=== PATIENT | male | born 1960 | race American Indian/Alaskan Native ===

== ENCOUNTER 2017-04-27 16:08 | Emergency (ER) | payer OTHER ==
[2017-04-27 17:17] LABS: Bilirubin,Urine NEG (Negative); Blood,Urine NEG (Negative); Ketones,Urine NEG (Negative); Leukocyte Esterase,Urine NEG (Negative); Nitrite,Urine NEG (Negative); Protein,Urine <15 mg/dL mg/dL (Negative); Urobilinogen,Urine < 2.0 mg/dL (<2.0); WBC,Urine < 1.0 /HPF (0.0-6.0)
[2017-04-27 23:16] LABS: Anion Gap 16 mmol/L; BUN/Creatinine Ratio 20; Blood Urea Nitrogen 12 mg/dL (9-20); Calcium 8.6 mg/dL (8.4-10.2); Carbon Dioxide 27 mmol/L (22-30); Chloride 100.1 mmol/L (98-107); Glucose 111 mg/dL (75-100); Potassium 3.4 mmol/L (3.6-5.0); Sodium 140 mmol/L (137-145)
--- NOTE | 2017-04-27 23:18 | Emergency Department Report ---
HPI - General Chief Complaint: Urogenital-Male Time Seen by Provider: 04/27/17 22:26 - HPI HPI: This is a 57-year-old demented male presents to the emergency department with complaint of increased urinary frequency over the past 24 hours and a 1-2 day history of some pain to the bilateral flank, back and upper abdomen. He denies any nausea, vomiting, fever, diaphoresis. He says that he does not feel as if he is completely emptying his bladder when he urinates. He says that sometimes he will dribble and/or urinated on himself. When he urinates it feels like it is burning in the flank and abdomen. 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 No recent travel or sick contacts at home. His primary care physician is Dr. James Reddy. ED Past Medical Hx - Past Medical History Previous Medical History?: Yes Hx Congestive Heart Failure: No Hx Diabetes: No Hx Deep Vein Thrombosis: Yes Hx Seizures: Yes Hx Asthma: No Hx COPD: No - Surgical History Past Surgical History?: Yes Additional Surgical History: surgeries to bilateral extremities, knee surgery, surgery on neck for disc replacement - Social History Smoking Status: Current Every Day Smoker Substance Use Type: None - Medications Home Medications: Home Medications Medication Instructions Recorded Confirmed Last Taken Type Aspirin [Aspirin BABY CHEW TAB] 81 mg PO QDAY 09/19/14 06/26/16 09/18/14 History Phenytoin [Dilantin] 300 mg PO QHS 09/19/14 06/26/16 06/25/16 History Apixaban [Eliquis] 5 mg PO .TAPER #74 tab 06/28/16 Unknown Rx HYDROcodone/APAP 5-325 [Foley 2 each PO Q6H PRN #20 tablet 06/28/16 Unknown Rx 5-325 mg TAB] Nicotine [Habitrol] 14 mg TD DAILY #30 patch 06/28/16 Unknown Rx ED Review of Systems ROS: Stated complaint: BACK PAIN, FREQUENT URINATING Other details as noted in HPI Comment: All other systems reviewed and negative Constitutional: denies: chills, fever Eyes: denies: eye pain, eye discharge, vision change ENT: denies: ear pain, throat pain Respiratory: denies: cough, shortness of breath, wheezing Cardiovascular: denies: chest pain, palpitations Gastrointestinal: abdominal pain. denies: nausea, vomiting Genitourinary: urgency, dysuria, frequency Musculoskeletal: back pain. denies: arthralgia Skin: denies: rash, lesions Neurological: denies: headache, weakness, paresthesias Physical Exam - Physical Exam Vital Signs: Vital Signs 04/27/17 04/27/17 04/27/17 16:18 21:00 22:49 Temperature 97.8 F 98.0 F Pulse Rate 70 73 Respiratory 16 18 Rate Blood Pressure 140/82 139/78 128/72 O2 Sat by Pulse 99 98 Oximetry 04/27/17 22:53 Temperature Pulse Rate Respiratory 16 Rate Blood Pressure O2 Sat by Pulse 96 Oximetry Physical Exam: GENERAL: The patient is well-developed well-nourished. HENT: Normocephalic. Atraumatic. Patient has moist mucous membranes. EYES: Extraocular motions are intact. Pupils equal reactive to light bilaterally. NECK: Supple. Trachea is midline. CHEST/LUNGS: Clear to auscultation. There is no respiratory distress noted. HEART/CARDIOVASCULAR: Regular. There is no tachycardia. There is no gallop rub or murmur. ABDOMEN: Abdomen is soft. There is some mild upper quadrant abdominal tenderness palpation. No guarding or rebound tenderness. Patient has normal bowel sounds. There is no abdominal distention. SKIN: Skin is warm and dry. NEURO: The patient is awake, alert, and oriented. The patient is cooperative. The patient has no focal neurologic deficits. The patient has normal speech. MUSCULOSKELETAL: There is no tenderness or deformity. There is no limitation range of motion. There is no evidence of acute injury. ED Course Vital Signs 04/27/17 04/27/17 04/27/17 16:18 21:00 22:49 Temperature 97.8 F 98.0 F Pulse Rate 70 73 Respiratory 16 18 Rate Blood Pressure 140/82 139/78 128/72 O2 Sat by Pulse 99 98 Oximetry 04/27/17 22:53 Temperature Pulse Rate Respiratory 16 Rate Blood Pressure O2 Sat by Pulse 96 Oximetry ED Medical Decision Making - Lab Data Result diagrams: 04/27/17 22:45 04/27/17 22:45 - Radiology Data Radiology results: report reviewed PROCEDURE: CT ABDOMEN PELVIS W CON TECHNIQUE: Computerized axial tomography of the abdomen and pelvis was performed after the IV injection of iodinated nonionic contrast. HISTORY: Flank pain, abdominal pain COMPARISON: No prior studies are available for comparison. FINDINGS: Visualized lower thorax: No significant abnormality. Liver: Normal size and attenuation. Spleen: Normal size and attenuation. Gallbladder and biliary system: Normal. Pancreas: Normal. Adrenals: There is a low-density mass in the left adrenal gland which measures 3.1 x 3.6 centimeters. This is most likely an adenoma.. Kidneys: Normal. GI tract: There is focal mucosal thickening of the gastric antrum which could be contraction or gastritis. There is no discrete mass, obstruction or ulceration. The small bowel is within normal limits. The colon is unremarkable. The appendix is normal.. Lymph nodes and mesentery: Normal. Vasculature: Normal. Bladder: Normal. Reproductive organs: Normal. Peritoneum: There is no ascites, free air, abscess or adenopathy.. Musculoskeletal structures: No significant abnormality. Other: None. IMPRESSION: There are no kidney stones. There is no hydronephrosis. There is a low-density mass in the left adrenal gland which measures 3.1 x 3.6 centimeters. This is most likely an adenoma.. There is focal mucosal thickening of the gastric antrum which could be contraction or gastritis. There is no discrete mass, obstruction or ulceration. The small bowel is within normal limits. The colon is unremarkable. The appendix is normal.. There is no ascites, free air, abscess or adenopathy.. Transcribed By: CO Dictated By: JAYME GOSS MD Electronically Authenticated By: JAYME GOSS MD Signed Date/Time: 04/28/17 0013 - Medical Decision Making The patient presents with increased urinary frequency, some trouble urinating and some pain to the back, flank and abdomen. His labs have been mostly unremarkable. Vital signs stable throughout his ED course included being afebrile. CT scan did not show any source of his symptoms. There is a questionable left-sided adrenal adenoma and/or low-density mass. The patient has been resting comfortably throughout his ED course and has been reevaluated multiple times of multiple hours. He'll be discharged home to follow-up with his primary care physician and was given a referral for urology. We discussed the incidental findings of the CT scan. He will return to the ER with any worsening of symptoms or any acute distress. - Differential Diagnosis nephrolithiasis, hydronephrosis, pancreatitis, gastritis Critical Care Time: No Critical care attestation.: If time is entered above; I have spent that time in minutes in the direct care of this critically ill patient, excluding procedure time. ED Disposition Clinical Impression: Urinary frequency, Dysuria, Flank pain Abdominal pain Qualifiers: Abdominal location: upper abdomen, unspecified Qualified Code(s): R10.10 - Upper abdominal pain, unspecified Disposition: TO HOME OR SELFCARE Is pt being admited?: No Condition: Stable Instructions: Dysuria (ED), Abdominal Pain (ED), Flank Pain (ED) Additional Instructions: Please follow-up with your primary care physician in the next few days. I have given you a referral for a local urologist, Dr. Mederos, to follow up regarding your increased urinary frequency and trouble with urinating. Return to the emergency Department with any worsening of your symptoms or any acute distress. Referrals: PRIMARY MD DEANA [Primary Care Provider] - 3-5 Days MARTY MEDEROS MD [Staff Physician] - 3-5 Days Time of Disposition: 04:30
[2017-04-27 23:20] LABS: Alanine Aminotransferase 11 units/L (7-56); Albumin 3.9 g/dL (3.9-5); Albumin/Globulin Ratio 1.6 %; Alkaline Phosphatase 101 units/L (35-129); Bilirubin,Total < 0.20 mg/dL (0.1-1.2); Lipase 15 units/L (13-60); Total Protein 6.3 g/dL (6.3-8.2)
[2017-04-27 23:23] LABS: Bilirubin,Direct < 0.2 mg/dL (0-0.2)
[2017-04-27 23:24] LABS: Basophils % (Auto) 0.3 % (0.0-1.8); Eosinophils % (Auto) 0.2 % (0.0-4.3); Hematocrit 42.5 % (35.5-45.6); Hemoglobin 14.2 gm/dl (11.8-15.2); Mean Corpuscular HGB Conc 33 % (32-34); Mean Corpuscular Hemoglobin 31 pg (28-32); Mean Corpuscular Volume 93 fl (84-94); Platelet Count 197 K/mm3 (140-440); Red Blood Count 4.58 M/mm3 (3.65-5.03); Red Cell Distribution Width 14.4 % (13.2-15.2); White Blood Count 7.7 K/mm3 (4.5-11.0)
[2017-04-27] MEDS ORDERED: NACL ONE (23:48)
--- NOTE | 2017-04-28 04:16 | Cat Scan Report ---
FINAL REPORT PROCEDURE: CT ABDOMEN PELVIS W CON TECHNIQUE: Computerized axial tomography of the abdomen and pelvis was performed after the IV injection of iodinated nonionic contrast. HISTORY: Flank pain, abdominal pain COMPARISON: No prior studies are available for comparison. FINDINGS: Visualized lower thorax: No significant abnormality. Liver: Normal size and attenuation. Spleen: Normal size and attenuation. Gallbladder and biliary system: Normal. Pancreas: Normal. Adrenals: There is a low-density mass in the left adrenal gland which measures 3.1 x 3.6 centimeters. This is most likely an adenoma.. Kidneys: Normal. GI tract: There is focal mucosal thickening of the gastric antrum which could be contraction or gastritis. There is no discrete mass, obstruction or ulceration. The small bowel is within normal limits. The colon is unremarkable. The appendix is normal.. Lymph nodes and mesentery: Normal. Vasculature: Normal. Bladder: Normal. Reproductive organs: Normal. Peritoneum: There is no ascites, free air, abscess or adenopathy.. Musculoskeletal structures: No significant abnormality. Other: None. IMPRESSION: There are no kidney stones. There is no hydronephrosis. There is a low-density mass in the left adrenal gland which measures 3.1 x 3.6 centimeters. This is most likely an adenoma.. There is focal mucosal thickening of the gastric antrum which could be contraction or gastritis. There is no discrete mass, obstruction or ulceration. The small bowel is within normal limits. The colon is unremarkable. The appendix is normal.. There is no ascites, free air, abscess or adenopathy..
[2017-04-28 04:49] VITALS: BP 139/69
== END 2017-04-28 04:49 | disposition home or self-care (01) ==
LOC: ED 16:08
DX: R30.0 Dysuria (principal); R35.0 Frequency of micturition; R10.10 Upper abdominal pain, unspecified; F17.200 Nicotine dependence, unspecified, uncomplicated; Z79.82 Long term (current) use of aspirin
CPT/HCPCS: 36415; 74177; 80048; 80074; 81001; 82962; 83690; 85025; 99284; Q9967

== ENCOUNTER 2019-07-08 11:28 | Emergency (ER) | payer OTHER ==
--- NOTE | 2019-07-08 12:15 | Emergency Department Report ---
Chief Complaint: Upper Respiratory Infection Stated Complaint: CHEST PAIN/COUGH/VOMIT BLOOD - HPI History of Present Illness: 59 y/o male with cp, abd pain hemoptysis on eliquis for dvt mostly complaint not having si right now sober now gcs 15 passive si labs ekg ua xr chest main side reassess Vital Signs 07/08/19 11:43 Temperature 98.1 F Pulse Rate 66 Respiratory 20 Rate Blood Pressure 158/88 O2 Sat by Pulse 98 Oximetry - Exam Vital Signs: Vital Signs 07/08/19 11:43 Temperature 98.1 F Pulse Rate 66 Respiratory 20 Rate Blood Pressure 158/88 O2 Sat by Pulse 98 Oximetry MSE screening note: Focused history and physical exam performed. Due to findings the following was ordered: ED Disposition for MSE Condition: Stable
[2019-07-08 12:40] LABS: Basophils # (Auto) 0.1 K/mm3 (0.0-0.1); Basophils % (Auto) 0.9 % (0.0-1.8); Eosinophils % (Auto) 0.1 % (0.0-4.3); Hematocrit 42.4 % (35.5-45.6); Hemoglobin 14.1 gm/dl (11.8-15.2); Lymphocytes # (Auto) 1.5 K/mm3 (1.2-5.4); Lymphocytes % (Auto) 21.8 % (13.4-35.0); Mean Corpuscular HGB Conc 33 % (32-34); Mean Corpuscular Volume 91 fl (84-94); Monocytes # (Auto) 0.8 K/mm3 (0.0-0.8); Monocytes % (Auto) 12.1 % (0.0-7.3); Platelet Count 185 K/mm3 (140-440); Red Blood Count 4.67 M/mm3 (3.65-5.03); Red Cell Distribution Width 14.5 % (13.2-15.2)
[2019-07-08 12:50] LABS: INR 0.97 (0.87-1.13)
--- NOTE | 2019-07-08 12:51 | XRay Report ---
CHEST 2 VIEWS INDICATION / CLINICAL INFORMATION: Cough. Chest pain. COMPARISON: 2 views of the chest from 07/11/2010. FINDINGS: SUPPORT DEVICES: None. HEART / MEDIASTINUM: No significant abnormality. LUNGS / PLEURA: No significant pulmonary or pleural abnormality. No pneumothorax. ADDITIONAL FINDINGS: There are similar degenerative changes along the spine. No significant additiona l findings. IMPRESSION: 1. No acute abnormality of the chest. Signer Name: Kobi Willard MD Signed: 07/08/2019 12:47 PM Workstation Name: [id number]
[2019-07-08 13:05] LABS: Alanine Aminotransferase 15 units/L (7-56); BUN/Creatinine Ratio 20; Blood Urea Nitrogen 16 mg/dL (9-20); Calcium 9.2 mg/dL (8.4-10.2); Hemolysis Index 8
[2019-07-08] MEDS ORDERED: predniSONE 20 MG TAB PO ONE (14:11)
[2019-07-08] MEDS ORDERED: ALBUTEROL 2.5 MG/3 ML NEBU IH ONE (14:11)
--- NOTE | 2019-07-08 14:11 | Emergency Department Report ---
Minor Respiratory - HPI Chief Complaint: Upper Respiratory Infection Stated Complaint: CHEST PAIN/COUGH/VOMIT BLOOD Time Seen by Provider: 07/08/19 14:11 Duration: 3 Days Pain Location: Chest Severity: mild Minor Respiratory: Yes Rhinorrhea, Yes Sore Throat, Yes Able to Tolerate Fluids, Yes Cough, No Ear Pain, No Sick Contacts, No Hemoptysis, No Chest Pain, No Shortness of Breath, No Fever Other History: 59 YO AA MALE COMES TO ER WITH CHEST PAIN ASSOCIATED WITH A COUGH FOR 2 MONTHS. PT SEEN BY DR AGRAWAL IN TRIAGE. WORK UP NOTED. PT SMOKER WITH A/C BRONCHITIS. NO FEVER NO CHILLS. AMBULATORY. TAKING PO. IN NAD. COUNSELED ON SMOKING CESSATION. PCP DR GOETZ. HOME RX. ELOQUIS. [facility] ED Review of Systems ROS: Stated complaint: CHEST PAIN/COUGH/VOMIT BLOOD Other details as noted in HPI Comment: All other systems reviewed and negative ED Past Medical Hx - Past Medical History Hx Hypertension: No Hx CVA: No Hx Heart Attack/AMI: No Hx Congestive Heart Failure: No Hx Diabetes: No Hx Deep Vein Thrombosis: Yes Hx Pulmonary Embolism: No Hx GERD: No Hx Liver Disease: No Hx Renal Disease: No Hx of Cancer: No Hx Sickle Cell Disease: No Hx Arthritis: No Hx Headaches / Migraines: Yes Hx Seizures: Yes Hx Kidney Stones: No Hx Psychiatric Treatment: No Hx Asthma: No Hx COPD: No Hx Tuberculosis: No Hx Dementia: No Hx HIV: No - Surgical History Past Surgical History?: Yes Additional Surgical History: surgeries to bilateral extremities, knee surgery, surgery on neck for disc replacement - Family History Family history: no significant - Social History Smoking Status: Current Every Day Smoker Substance Use Type: None - Medications Home Medications: Home Medications Medication Instructions Recorded Confirmed Last Taken Type Phenytoin [Dilantin] 300 mg PO QHS 09/19/14 06/26/16 06/25/16 History Apixaban [Eliquis] 5 mg PO .TAPER #74 tab 06/28/16 Unknown Rx Albuterol INH(or & Nicu Only) 2 puff IH QID PRN #1 inhalation 07/08/19 Unknown Rx [ProAir HFA Inhaler] Azithromycin [Zithromax Z-MESFIN] 250 mg PO DAILY #6 tablet 07/08/19 Unknown Rx Fluticasone [Flonase] 1 spray NS QDAY #1 bottle 07/08/19 Unknown Rx predniSONE [Deltasone] 20 mg PO DAILY #5 tablet 07/08/19 Unknown Rx Minor Respiratory Exam - Exam General: Vital signs noted. No distress. Alert and acting appropriately. HEENT: Yes Pharyngeal Erythema, Yes Moist Mucous Membranes, Yes Frontal Tenderness, Yes Maxillary Tenderness, No Pharyngeal Exudates, No Rhinorrhea, No Conjuctival Injection Ear: Neither TM Bulge, Neither TM Erythema, Neither EAC Pain, Neither EAC Discharge Neck: Yes Supple, No Adenopathy Lungs: Yes Good Air Exchange, Yes Wheezes, Yes Ronchi, No Stridor, No Cough, No Labored Respirations, No Retractions, No Use of Accessory Muscles, No Other Abnormal Lung Sounds Heart: Yes Regular, No Murmur Abdomen: Yes Normal Bowel Sounds, No Tenderness, No Peritoneal Signs Skin: No Rash, No Edema Neurologic: Alert and oriented, no deficits. Musculoskeletal: Unremarkable. ED Course Vital Signs 07/08/19 11:43 Temperature 98.1 F Pulse Rate 66 Respiratory 20 Rate Blood Pressure 158/88 O2 Sat by Pulse 98 Oximetry - Reevaluation(s) Reevaluation #1: 07/08/19 14:19 home rx eloquis vit b vit d keppra ED Medical Decision Making - Lab Data Result diagrams: 07/08/19 12:23 07/08/19 12:23 - EKG Data -: EKG Interpreted by Me EKG shows normal: sinus rhythm Rate: normal - EKG Data When compared to previous EKG there are: no significant change Interpretation: no acute changes - Radiology Data Radiology results: report reviewed, image reviewed interpreted by me: elliot - Medical Decision Making Labs 07/08/19 07/08/19 07/08/19 12:23 12:23 12:23 WBC 6.7 RBC 4.67 Hgb 14.1 Hct 42.4 MCV 91 MCH 30 MCHC 33 RDW 14.5 Plt Count 185 Lymph % (Auto) 21.8 Jack % (Auto) 12.1 H Eos % (Auto) 0.1 Baso % (Auto) 0.9 Lymph # 1.5 Jack # 0.8 Eos # 0.0 Baso # 0.1 Seg Neutrophils % 65.1 Seg Neutrophils # 4.4 PT 13.0 INR 0.97 Sodium 141 Potassium 4.6 Chloride 105.4 Carbon Dioxide 22 Anion Gap 18 BUN 16 Creatinine 0.8 Estimated GFR > 60 BUN/Creatinine Ratio 20 Glucose 104 H Calcium 9.2 Magnesium 2.00 Total Bilirubin 0.20 AST 17 ALT 15 Alkaline Phosphatase 85 Total Creatine Kinase 171 H Troponin T < 0.010 Total Protein 6.7 Albumin 4.0 Albumin/Globulin Ratio 1.5 Salicylates Acetaminophen 07/08/19 07/08/19 12:23 12:23 WBC RBC Hgb Hct MCV MCH MCHC RDW Plt Count Lymph % (Auto) Jack % (Auto) Eos % (Auto) Baso % (Auto) Lymph # Jack # Eos # Baso # Seg Neutrophils % Seg Neutrophils # PT INR Sodium Potassium Chloride Carbon Dioxide Anion Gap BUN Creatinine Estimated GFR BUN/Creatinine Ratio Glucose Calcium Magnesium Total Bilirubin AST ALT Alkaline Phosphatase Total Creatine Kinase Troponin T Total Protein Albumin Albumin/Globulin Ratio Salicylates < 0.3 L Acetaminophen < 5.0 L Vital Signs 07/08/19 11:43 Temperature 98.1 F Pulse Rate 66 Respiratory 20 Rate Blood Pressure 158/88 O2 Sat by Pulse 98 Oximetry MEDICATED WITH DUONEB AND PREDNISONE IN ER VSS AMBULATORY NON ILL NON TOXIC DC HOME WITH DC PLAN OF CARE AND PCP FOLLOW UP - Differential Diagnosis ro pna/chf/uri/copd ae Critical care attestation.: If time is entered above; I have spent that time in minutes in the direct care of this critically ill patient, excluding procedure time. ED Disposition Clinical Impression: Bronchitis, URTI (acute upper respiratory infection) Disposition: DC-01 TO HOME OR SELFCARE Is pt being admited?: No Does the pt Need Aspirin: No Condition: Stable Instructions: Acute Bronchitis (ED) Additional Instructions: stay well hydrated stop smoking meds as ordered today continue home meds follow up with pcp additional referral given below Prescriptions: predniSONE [Deltasone] 20 mg PO DAILY #5 tablet Fluticasone [Flonase] 1 spray NS QDAY #1 bottle Albuterol INH(or & Nicu Only) [ProAir HFA Inhaler] 2 puff IH QID PRN #1 inhalation PRN Reason: Shortness Of Breath Azithromycin [Zithromax Z-MESFIN] 250 mg PO DAILY #6 tablet Referrals: JAYCEE VACA MD [Staff Physician] - 3-5 Days Forms: Work/School Release Form(ED) Time of Disposition: 14:17
[2019-07-08 15:06] VITALS: BP 128/76
== END 2019-07-08 15:25 | disposition home or self-care (01) ==
LOC: ED 11:28
DX: J40 Bronchitis, not specified as acute or chronic (principal); J06.9 Acute upper respiratory infection, unspecified; G43.909 Migraine, unspecified, not intractable, without status migrainosus; F17.200 Nicotine dependence, unspecified, uncomplicated; Z98.890 Other specified postprocedural states
CPT/HCPCS: 36415; 71046; 80053; 82550; 83735; 84484; 85025; 85610; 93005; 93010; 94640; 99284; J7512; 80320; G0480

== ENCOUNTER 2020-03-13 20:37 | Emergency (ER) | payer OTHER ==
[2020-03-13 20:47] VITALS: BP 137/76
--- NOTE | 2020-03-13 21:32 | XRay Report ---
RIGHT TIBIA-FIBULA 2 VIEW(S) INDICATION / CLINICAL INFORMATION: MAIN COMPARISON: None available. FINDINGS: BONES / JOINT(S): No acute fracture or subluxation. Intramedullary jennifer and screw fixation of prior ti bial trauma without evidence of hardware loosening or failure. Multiple fractures are noted throughou t the fibular shaft. Moderate arthrosis of the knee. SOFT TISSUES: Mild generalized superficial soft tissue swelling over the anterior tibia. ADDITIONAL FINDINGS: None. Signer Name: Sergey Matthew MD Signed: 03/13/2020 9:28 PM Workstation Name: [id number]
--- NOTE | 2020-03-13 22:53 | Emergency Department Report ---
ED Lower Extremity HPI - General Chief Complaint: Extremity Injury, Lower Stated Complaint: RIGHT LOWER LEG PAIN Time Seen by Provider: 03/13/20 22:35 Source: patient, EMS Mode of arrival: Wheelchair Limitations: No Limitations - History of Present Illness Initial Comments: 59-year-old male presents to ED with pain to right lower leg. Patient states he was at work when a forklift hit him in the lateral aspect of his lower leg. Patient reports difficulty with ambulation secondary to pain. MD Complaint: leg injury -: This evening Injury: Leg: Right Type of Injury: blunt Place: work Severity: moderate Improves With: immobilization Worsens With: weight bearing, palpation Context: direct blow - Related Data Home Medications Medication Instructions Recorded Confirmed Last Taken Phenytoin [Dilantin] 300 mg PO QHS 09/19/14 06/26/16 06/25/16 Previous Rx's Medication Instructions Recorded Last Taken Type Apixaban [Eliquis] 5 mg PO .TAPER #74 tab 06/28/16 Unknown Rx Albuterol Mdi (or & Nicu Only) 2 puff IH QID PRN #1 inhalation 07/08/19 Unknown Rx [ProAir HFA Inhaler] Azithromycin [Zithromax Z-MESFIN] 250 mg PO DAILY #6 tablet 07/08/19 Unknown Rx Fluticasone [Flonase] 1 spray NS QDAY #1 bottle 07/08/19 Unknown Rx predniSONE [Deltasone] 20 mg PO DAILY #5 tablet 07/08/19 Unknown Rx Naproxen [Naprosyn] 500 mg PO BID #20 tablet 03/13/20 Unknown Rx Allergies Allergy/AdvReac Type Severity Reaction Status Date / Time No Known Allergies Allergy Verified 09/19/14 18:05 ED Review of Systems ROS: Stated complaint: RIGHT LOWER LEG PAIN Other details as noted in HPI Comment: All other systems reviewed and negative Musculoskeletal: as per HPI ED Past Medical Hx - Past Medical History Hx Hypertension: No Hx CVA: No Hx Heart Attack/AMI: No Hx Congestive Heart Failure: No Hx Diabetes: No Hx Deep Vein Thrombosis: Yes Hx Pulmonary Embolism: No Hx GERD: No Hx Liver Disease: No Hx Renal Disease: No Hx Sickle Cell Disease: No Hx Arthritis: No Hx Headaches / Migraines: Yes Hx Seizures: Yes Hx Kidney Stones: No Hx Psychiatric Treatment: No Hx Asthma: No Hx COPD: No Hx Tuberculosis: No Hx Dementia: No Hx HIV: No - Surgical History Additional Surgical History: surgeries to bilateral extremities, knee surgery, surgery on neck for disc replacement - Social History Smoking Status: Current Every Day Smoker Substance Use Type: None - Medications Home Medications: Home Medications Medication Instructions Recorded Confirmed Last Taken Type Phenytoin [Dilantin] 300 mg PO QHS 09/19/14 06/26/16 06/25/16 History Apixaban [Eliquis] 5 mg PO .TAPER #74 tab 06/28/16 Unknown Rx Albuterol Mdi (or & Nicu Only) 2 puff IH QID PRN #1 inhalation 07/08/19 Unknown Rx [ProAir HFA Inhaler] Azithromycin [Zithromax Z-MESFIN] 250 mg PO DAILY #6 tablet 07/08/19 Unknown Rx Fluticasone [Flonase] 1 spray NS QDAY #1 bottle 07/08/19 Unknown Rx predniSONE [Deltasone] 20 mg PO DAILY #5 tablet 07/08/19 Unknown Rx Naproxen [Naprosyn] 500 mg PO BID #20 tablet 03/13/20 Unknown Rx ED Physical Exam - General Limitations: No Limitations General appearance: alert, in no apparent distress - Head Head exam: Present: atraumatic, normocephalic - Eye Eye exam: Present: normal appearance - ENT ENT exam: Present: mucous membranes moist - Neck Neck exam: Present: normal inspection - Respiratory Respiratory exam: Present: normal lung sounds bilaterally. Absent: respiratory distress - Cardiovascular Cardiovascular Exam: Present: normal rhythm, bradycardia - GI/Abdominal GI/Abdominal exam: Absent: distended - Extremities Exam Extremities exam: Present: other (Slight tenderness to lateral aspect right lower leg; no deformity noted; no bruising or swelling present) - Neurological Exam Neurological exam: Present: alert, oriented X3. Absent: motor sensory deficit - Psychiatric Psychiatric exam: Present: normal affect, normal mood - Skin Skin exam: Present: warm, dry, intact, normal color ED Course Vital Signs 03/13/20 20:46 Temperature 98.1 F Pulse Rate 58 L Respiratory 19 Rate Blood Pressure 137/76 O2 Sat by Pulse 91 Oximetry ED Lower Extremity MDM - Radiology Data Radiology results: report reviewed, image reviewed - Medical Decision Making 59-year-old male with right lower leg contusion. X-rays are unremarkable. Existing hardware appears to be stable. Will discharge at this time with prescription for anti-inflammatories. Return precautions given. - Differential Diagnosis Fracture, contusion Critical care attestation.: If time is entered above; I have spent that time in minutes in the direct care of this critically ill patient, excluding procedure time. ED Disposition Clinical Impression: Contusion of right lower leg Disposition: DC- TO HOME OR SELFCARE Is pt being admited?: No Condition: Stable Instructions: Contusion in Adults (ED) Prescriptions: Naproxen [Naprosyn] 500 mg PO BID #20 tablet Referrals: PRIMARY CARE, [Primary Care Provider] - 3-5 Days Forms: Work/School Release Form Time of Disposition: 22:53
== END 2020-03-13 23:15 | disposition home or self-care (01) ==
LOC: ED 20:37
DX: S80.11XA Contusion of right lower leg, initial encounter (principal); G43.909 Migraine, unspecified, not intractable, without status migrainosus; F17.200 Nicotine dependence, unspecified, uncomplicated; Z98.890 Other specified postprocedural states; Z86.718 Personal history of other venous thrombosis and embolism; Z79.01 Long term (current) use of anticoagulants; Z79.899 Other long term (current) drug therapy; X58.XXXA Exposure to other specified factors, initial encounter; Y93.89 Activity, other specified; Y92.89 Other specified places as the place of occurrence of the external cause; Y99.8 Other external cause status

== ENCOUNTER 2020-04-29 19:45 | Emergency (ER) | payer OTHER ==
[2020-04-29] MEDS ORDERED: levETIRAcetam 1000 MG/NS 0.75% 1,000 MG/100 ML BAG IV ONE (20:27)
--- NOTE | 2020-04-29 20:49 | Emergency Department Report ---
ED Seizure HPI - General Chief Complaint: Seizure Stated Complaint: SEIZURE Time Seen by Provider: 04/29/20 20:21 Source: patient, EMS Mode of arrival: Stretcher Limitations: No Limitations - History of Present Illness Initial Comments: Patient is a 60-year-old F [place] male has a past medical history of seizures who states he has been compliant with his Keppra was increased seizures over the last 2 weeks. Patient is stated he had a seizure prior to arrival. Patient is denying any head trauma fevers chills nausea vomiting diarrhea at this time. - Related Data Home Medications Medication Instructions Recorded Confirmed Last Taken Phenytoin [Dilantin] 300 mg PO QHS 09/19/14 06/26/16 06/25/16 Previous Rx's Medication Instructions Recorded Last Taken Type Apixaban [Eliquis] 5 mg PO .TAPER #74 tab 06/28/16 Unknown Rx Albuterol Mdi (or & Nicu Only) 2 puff IH QID PRN #1 inhalation 07/08/19 Unknown Rx [ProAir HFA Inhaler] Azithromycin [Zithromax Z-MESFIN] 250 mg PO DAILY #6 tablet 07/08/19 Unknown Rx Fluticasone [Flonase] 1 spray NS QDAY #1 bottle 07/08/19 Unknown Rx predniSONE [Deltasone] 20 mg PO DAILY #5 tablet 07/08/19 Unknown Rx Naproxen [Naprosyn] 500 mg PO BID #20 tablet 03/13/20 Unknown Rx Allergies Allergy/AdvReac Type Severity Reaction Status Date / Time No Known Allergies Allergy Verified 09/19/14 18:05 ED Review of Systems ROS: Stated complaint: SEIZURE Other details as noted in HPI Comment: All other systems reviewed and negative ED Past Medical Hx - Past Medical History Hx Hypertension: No Hx CVA: No Hx Heart Attack/AMI: No Hx Congestive Heart Failure: No Hx Diabetes: No Hx Deep Vein Thrombosis: Yes Hx Pulmonary Embolism: No Hx GERD: No Hx Liver Disease: No Hx Renal Disease: No Hx Sickle Cell Disease: No Hx Arthritis: No Hx Headaches / Migraines: Yes Hx Seizures: Yes Hx Kidney Stones: No Hx Psychiatric Treatment: No Hx Asthma: No Hx COPD: No Hx Tuberculosis: No Hx Dementia: No Hx HIV: No - Surgical History Additional Surgical History: surgeries to bilateral extremities, knee surgery, surgery on neck for disc replacement - Social History Smoking Status: Current Every Day Smoker Substance Use Type: None - Medications Home Medications: Home Medications Medication Instructions Recorded Confirmed Last Taken Type Phenytoin [Dilantin] 300 mg PO QHS 09/19/14 06/26/16 06/25/16 History Apixaban [Eliquis] 5 mg PO .TAPER #74 tab 06/28/16 Unknown Rx Albuterol Mdi (or & Nicu Only) 2 puff IH QID PRN #1 inhalation 07/08/19 Unknown Rx [ProAir HFA Inhaler] Azithromycin [Zithromax Z-MESFIN] 250 mg PO DAILY #6 tablet 07/08/19 Unknown Rx Fluticasone [Flonase] 1 spray NS QDAY #1 bottle 07/08/19 Unknown Rx predniSONE [Deltasone] 20 mg PO DAILY #5 tablet 07/08/19 Unknown Rx Naproxen [Naprosyn] 500 mg PO BID #20 tablet 03/13/20 Unknown Rx ED Physical Exam - General Limitations: No Limitations General appearance: alert, in no apparent distress - Head Head exam: Present: atraumatic, normocephalic - Eye Eye exam: Present: normal appearance, PERRL, EOMI - ENT ENT exam: Present: normal orophraynx, mucous membranes moist - Neck Neck exam: Present: normal inspection - Respiratory Respiratory exam: Present: normal lung sounds bilaterally. Absent: respiratory distress, wheezes, rales, rhonchi - Cardiovascular Cardiovascular Exam: Present: regular rate, normal rhythm, normal heart sounds. Absent: systolic murmur, diastolic murmur, rubs, gallop - GI/Abdominal GI/Abdominal exam: Present: soft, normal bowel sounds. Absent: distended, tenderness, guarding, rebound - Rectal Rectal exam: Present: deferred - Extremities Exam Extremities exam: Present: normal inspection - Back Exam Back exam: Present: normal inspection - Neurological Exam Neurological exam: Present: alert, oriented X3 - Psychiatric Psychiatric exam: Present: normal affect, normal mood - Skin Skin exam: Present: warm, dry, intact, normal color. Absent: rash ED Course Vital Signs 04/29/20 04/29/20 19:57 22:06 Temperature 98.1 F 98.2 F Pulse Rate 65 59 L Respiratory 23 15 Rate Blood Pressure 154/74 152/75 [Left] O2 Sat by Pulse 99 97 Oximetry ED Medical Decision Making - Lab Data Result diagrams: 04/29/20 20:34 04/29/20 20:34 - Medical Decision Making Patient was loaded with Keppra. Laboratory studies were within normal limits and the patient be discharged home. Critical care attestation.: If time is entered above; I have spent that time in minutes in the direct care of this critically ill patient, excluding procedure time. ED Disposition Clinical Impression: Breakthrough seizure Disposition: DC-01 TO HOME OR SELFCARE Is pt being admited?: No Does the pt Need Aspirin: No Condition: Stable Instructions: Seizure, Adult, [id number] Referrals: PRIMARY CARE, [Primary Care Provider] - 3-5 Days Time of Disposition: 22:09
[2020-04-29 20:55] LABS: Basophils % (Auto) 0.7 % (0.0-1.8); Eosinophils # (Auto) 0.1 K/mm3 (0.0-0.4); Eosinophils % (Auto) 1.3 % (0.0-4.3); Hematocrit 41.9 % (35.5-45.6); Lymphocytes # (Auto) 1.1 K/mm3 (1.2-5.4); Lymphocytes % (Auto) 17.2 % (13.4-35.0); Mean Corpuscular HGB Conc 33 % (32-34); Mean Corpuscular Volume 91 fl (84-94); Monocytes # (Auto) 0.8 K/mm3 (0.0-0.8); Monocytes % (Auto) 11.8 % (0.0-7.3); Platelet Count 155 K/mm3 (140-440); Red Blood Count 4.63 M/mm3 (3.65-5.03); Red Cell Distribution Width 14.5 % (13.2-15.2)
[2020-04-29 21:12] LABS: BUN/Creatinine Ratio 16; Blood Urea Nitrogen 16 mg/dL (9-20); Calcium 8.7 mg/dL (8.4-10.2); Hemolysis Index 15
[2020-04-29] MEDS ORDERED: ACETAMINOPHEN 325 MG TAB PO ONE (22:07)
[2020-04-29 23:26] VITALS: BP 138/73
== END 2020-04-29 23:14 | disposition home or self-care (01) ==
LOC: ED 19:45
DX: R56.9 Unspecified convulsions (principal); G43.909 Migraine, unspecified, not intractable, without status migrainosus; F17.200 Nicotine dependence, unspecified, uncomplicated; Z86.718 Personal history of other venous thrombosis and embolism; Z98.890 Other specified postprocedural states; Z79.2 Long term (current) use of antibiotics; Z79.899 Other long term (current) drug therapy
CPT/HCPCS: 36415; 80048; 85025; 96365; 99284; J1953